=== PATIENT | female | born 1985 | race Two or more races ===

== ENCOUNTER 2016-10-06 21:06 | Emergency (ER) | payer BC, MEDICAID, OTHER ==
[~2016-10-06] VITALS: Ht 160 cm; Wt 81.6 kg
[2016-10-06 21:14] VITALS: BP 114/67
--- NOTE | 2016-10-06 23:20 | NUR ---
TO ER BED 4
--- NOTE | 2016-10-07 00:14 | NUR ---
Patient being evaluated by physician at bedside.
--- NOTE | 2016-10-07 00:20 | NUR ---
ALL RESULTS BACK AND NOTED BY ERMD AND FOR D/C.
[2016-10-07 00:30] VITALS: BP 122/70
--- NOTE | 2016-10-07 00:30 | NUR ---
Patient discharged with v/s stable. Written and verbal after care instructions given and explained. Patient alert, oriented and verbalized understanding of instructions. Ambulatory with steady gait. All questions addressed prior to discharge. ID band removed. Patient advised to follow up with PMD. Rx of MIRALAX, MOTRIN given. Patient educated on indication of medication including possible reaction and side effects. Opportunity to ask questions provided and answered.
== END 2016-10-07 00:30 | disposition home or self-care (01) ==
LOC: MED 21:06
DX: R10.30 Lower abdominal pain, unspecified (principal)